=== PATIENT | male | born 1955 | race Caucasian/White ===

== ENCOUNTER → 2017-07-30 | Outpatient (CLI) | payer OTHER ==
--- NOTE | 2017-07-30 09:41 | US ---
EXAMINATION TYPE: US carotid duplex BILAT DATE OF EXAM: 07/30/2017 COMPARISON: NONE CLINICAL HISTORY: 62-year-old male I65.21 STENOSIS. Plaque noted right carotid on recent xray done at the dentist TECHNIQUE: Carotid duplex ultrasound examination. Indirect Doppler criteria was utilized. FINDINGS: STRAIGHTEDGE MAN NOTES: Mild to moderate atherosclerotic calcifications are noted bilateral bifurcations. No evidence of significant stenosis. Mildly increased velocities bilateral ECA's. RIGHT: Peak Systolic Velocity (PSV) cm/sec ----- Right CCA: 87.7 ----- Right ICA: 104.2 ----- Right ECA: 164.3 ICA/CCA ratio: 1.2 RIGHT: End Diastole cm/sec ----- Right CCA: 22.7 ----- Right ICA: 38.1 ----- Right ECA: 23.6 LEFT: Peak Systolic Velocity (PSV) cm/sec ----- Left CCA: 97.9 ----- Left ICA: 123.9 ----- Left ECA: 176.7 ICA/CCA ratio: 1.3 LEFT: End Diastole cm/sec ----- Left CCA: 26.7 ----- Left ICA: 35.8 ----- Left ECA: 22.9 VERTEBRALS (direction of flow): Right Vertebral: Antegrade Left Vertebral: Antegrade Rhythm: Normal IMPRESSION: No hemodynamically significant stenosis appreciated in either internal carotid artery. Criteria for Assigning % of Stenosis / Diameter reduction (Estimation based on the indirect measurements of the internal carotid artery velocities (ICA PSV). 1. Normal (no stenosis)=ICA PSV < 125 cm/s: ratio < 2.0: ICA EDV<40 cm/s. 2. Less than 50% stenosis=ICA PSV < 125 cm/s: ratio < 2.0: ICA EDV<40 cm/s. 3. 50 to 69% stenosis=ICA PSV of 125 to 230 cm/s: ration 2.0 ? 4.0: ICA EDV 40-100 cm/s. 4. Greater than 70% stenosis to near occlusion= ICA PSV > 230 cm/s: ratio > 4.0: ICA EDV > 100 cm/s. 5. Near occlusion= ICA PSV velocities may be low or undetectable: variable ratio and ICA EDV. 6. Total occlusion=unable to detect flow.
== END | disposition home or self-care (01) ==
LOC: RADUSWWP 08:32
PROVIDERS: ATTEND Family Medicine
DX: I65.21 Occlusion and stenosis of right carotid artery (principal)
CPT/HCPCS: 93880

== ENCOUNTER → 2023-12-25 | Outpatient (CLI) | payer MEDICARE ==
--- NOTE | 2023-12-25 08:07 | CT ---
EXAMINATION TYPE: CT heart w calcium score DATE OF EXAM: 12/25/2023 COMPARISON: None HISTORY: Screening for cardiovascular disorder. 213.9 CT DLP: 64 mGycm Automated exposure control for dose reduction was used. CT CALCIUM SCORING Coronary calcium is a marker for plaque (fatty deposits) in a blood vessel or atherosclerosis (harden ing of the arteries). The presence and amount of calcium detected in a coronary artery by the CT sca n, indicates the presence and amount of atherosclerotic plaque. These calcium deposits appear years before the development of heart disease symptoms such as chest pain and shortness of breath. A calcium score is computed for each of the coronary arteries based upon the volume and density of th e calcium deposits. This can be referred to as your calcified plaque burden. It does not correspond directly to the percentage of narrowing in the artery but does correlate with the severity of the un derlying coronary atherosclerosis. PROCEDURE TECHNIQUE - Prospective Gating was used. Slice thickness: 3mm. Density threshold (HU): 130, Pixel threshold: 3, Algorithm: discrete. RESULTS Region: LM Calcium Score ([place]): 38.28 Volume (mm3): 30.37 Mass (g): 10.12 Region: RCA Calcium Score ([place]): 964.93 Volume (mm3): 758.06 Mass (g): 252.69 Region: LAD Calcium Score ([place]): 1254.98 Volume (mm3): 971.74 Mass (g): 323.91 Region: CX Calcium Score ([place]): 495.25 Volume (mm3): 393.66 Mass (g): 131.22 Region: PDA Calcium Score ([place]): 10 Volume (mm3): 0 Mass (g): 0 Total: Calcium Score ([place]): 2753.44 Volume (mm3): 2153.83 Mass (g): 717.94 TOTAL CALCIUM SCORE: 2753.44 Images demonstrates dense three-vessel coronary arteries extensive calcification. Mild atheroscleroti c changes aorta. Heart is enlarged and there is a trace of pericardial fluid. Tiny hiatal hernia. Deg enerative changes of the spine. Lungs are clear. IMPRESSION: Calcium Score: 2753.44 Implication: Extensive atherosclerotic plaque. Risk of Coronary Artery Disease: High likelihood of at least one significant coronary narrowing. CALCIUM SCORE IMPLICATION RISK OF C ORONARY ARTERY DISEASE 0 No identifiable plaque Very low, generally less than 5% 1-10 Minimal identifiable plaque Very unlikely, less than 10% 11-100 Definite, at least mild atherosclerotic plaque Mild or m inimal coronary narrowings likely 101-400 Definite, at least moderate atherosclerotic plaque Mild coronary ar teagan disease highly likely, significant narrowing possible 401 or Higher Extensive atherosclerotic plaque High lik elihood of at least one significant coronary narrowing
== END | disposition home or self-care (01) ==
LOC: RADCTMAIN 07:16
PROVIDERS: ATTEND Family Medicine
DX: Z13.6 Encounter for screening for cardiovascular disorders (principal); R22.42 Localized swelling, mass and lump, left lower limb
CPT/HCPCS: 75571

== ENCOUNTER → 2024-01-01 | Outpatient (CLI) | payer MEDICARE ==
--- NOTE | 2024-01-01 16:24 | US ---
EXAMINATION TYPE: US venous doppler duplex LE LT DATE OF EXAM: 01/01/2024 3:44 PM COMPARISON: NONE CLINICAL INDICATION: Male, 68 years old with history of Z13.9 CARDIOVASC SCR R22.42 SWELLING LLE; Lef t leg edema SIDE PERFORMED: left TECHNIQUE: The lower extremity deep venous system is examined utilizing real time linear array sonog frank with graded compression, doppler sonography and color-flow sonography. VESSELS IMAGED: Common Femoral Vein Deep Femoral Vein Greater Saphenous Vein * Femoral Vein Popliteal Vein Small Saphenous Vein * Proximal Calf Veins (* superficial vessels) The deep venous system of the left lower extremity from the common femoral vein to the proximal calf veins is patent and compressible with augmentable flow with normal waveforms. IMPRESSION: No evidence of left lower extremity DVT from the common femoral vein to the proximal calf veins
== END | disposition home or self-care (01) ==
LOC: RADUSWWP 15:22
PROVIDERS: ATTEND Family Medicine
DX: Z13.9 Encounter for screening, unspecified (principal); R22.42 Localized swelling, mass and lump, left lower limb